=== PATIENT | female | born 1970 ===

== ENCOUNTER 2017-01-26 22:19 | Emergency (ER) | payer OTHER ==
[2017-01-26 22:38] VITALS: BP 111/73; PULSE 69; RESP 20; TEMP 97.9; O2SAT 100
--- NOTE | 2017-01-26 23:23 | C.PDOC ---
History Of Present Illness 46 year old female who presents to the ER with a complaint of intermittent back pain for the past week that worsens with movement and when bending over. Patient reports having similar symptoms in the past, however, states she feels like it is lasting longer this time. Patient has not taken anything for the pain and denies weakness, numbness, radiation of pain, recent trauma, fall, incontinence, dysuria, or hematuria. Time Seen by Provider: 01/26/17 22:49 Chief Complaint (Nursing): Back Pain History Per: Patient History/Exam Limitations: no limitations Onset/Duration Of Symptoms: Days Current Symptoms Are (Timing): Still Present Quality Of Discomfort: Unable To Describe Previous Symptoms: None Associated Symptoms: None Exacerbating Factor(s): Movement, Other (Bending over) Recent travel outside of the [place]: No Past Medical History Reviewed: Historical Data, Nursing Documentation, Vital Signs Vital Signs: Last Vital Signs Temp 97.9 F 01/26/17 22:35 Pulse 69 01/26/17 22:35 Resp 20 01/26/17 22:35 BP 111/73 01/26/17 22:35 Pulse Ox 100 01/26/17 23:26 - Medical History PMH: No Chronic Diseases Surgical History: No Surg Hx Family History: States: Unknown Family Hx - Social History Hx Tobacco Use: No Hx Alcohol Use: Yes Hx Substance Use: No - Immunization History Hx Tetanus Toxoid Vaccination: No Hx Influenza Vaccination: No Hx Pneumococcal Vaccination: No Review Of Systems Genitourinary: Negative for: Dysuria, Incontinence, Hematuria Musculoskeletal: Positive for: Back Pain Neurological: Negative for: Weakness, Numbness Physical Exam - Physical Exam Appears: Non-toxic, No Acute Distress Skin: Normal Color, Warm, Dry Head: Atraumatic, Normacephalic Eye(s): bilateral: Normal Inspection, EOMI Oral Mucosa: Moist Back: No CVA Tenderness, No Vertebral Tenderness, Paraspinal Tenderness (Lumbar) Extremity: Normal ROM (x4) Neurological/Psych: Oriented x3, Normal Speech, Normal Cognition, Normal Motor, Normal Sensation Gait: Steady ED Course And Treatment O2 Sat by Pulse Oximetry: 100 (Room air) Pulse Ox Interpretation: Normal Progress Note: Motrin administered. On reassessment, patient is resting comfortably, with improvement of back pain. Patient remains with no bony tenderness, extremity numbness or weakness, or abdominal pain. Patient is ambulatory in the emergency department with no signs of discomfort. Patient was advised to follow up with PMD in 1-2 days. Disposition Counseled Patient/Family Regarding: Diagnosis, Need For Followup, Rx Given - Disposition Disposition: HOME/ ROUTINE Disposition Time: 23:21 Condition: STABLE Additional Instructions: Take meds as directed Follow up with Dr Michaels Return to ER if worse Prescriptions: Cyclobenzaprine [Cyclobenzaprine HCl] 10 mg PO HS #10 tab Ibuprofen [Motrin] 600 mg PO Q6H #20 tab Instructions: Muscle Strain (ED) Forms: [employer] (Romanian) - Clinical Impression Clinical Impression: Low back strain - Scribe Statement The provider has reviewed the documentation as recorded by the Scribe Jerome Chopra All medical record entries made by the Annieibkurt were at my direction and personally dictated by me. I have reviewed the chart and agree that the record accurately reflects my personal performance of the history, physical exam, medical decision making, and the department course for this patient. I have also personally directed, reviewed, and agree with the discharge instructions and disposition.
== END 2017-01-26 23:38 | disposition home or self-care (01) ==
LOC: C.ER 22:19
DX: S39.012A Strain of muscle, fascia and tendon of lower back, initial encounter (principal); X58.XXXA Exposure to other specified factors, initial encounter

== ENCOUNTER 2018-01-01 22:59 | Emergency (ER) | payer OTHER ==
[2018-01-01 23:20] VITALS: BP 108/63; PULSE 70; RESP 16; TEMP 98.6; O2SAT 98
[2018-01-01] MEDS ORDERED: Bacitracin 500 Units/gm Oint Foilpak UD TOP ONE (23:33)
[2018-01-01] MEDS ORDERED: Bacitracin 500 Units/gm Oint Foilpak UD ONE (23:38)
--- NOTE | 2018-01-02 00:04 | C.PDOC ---
History Of Present Illness 47 year old female presents to the emergency department with complaints of right wrist and right knee pain status-post trip and fall inside a [employer] prior to arrival. Pain aggravated by movement. Patient denies head injury or change in sensation. Right hand dominant. Time Seen by Provider: 01/01/18 23:13 Chief Complaint (Nursing): Abnormal Skin Integrity History Per: Patient History/Exam Limitations: no limitations Onset/Duration Of Symptoms: Hrs Current Symptoms Are (Timing): Still Present Location Of Injury: Right: Knee, Wrist Quality Of Symptoms: Painful Past Medical History Reviewed: Historical Data, Nursing Documentation, Vital Signs Vital Signs: Last Vital Signs Temp 98.6 F 01/01/18 23:09 Pulse 70 01/01/18 23:09 Resp 16 01/01/18 23:09 BP 108/63 01/01/18 23:09 Pulse Ox 98 01/01/18 23:09 - Medical History PMH: No Chronic Diseases Surgical History: No Surg Hx Family History: States: No Known Family Hx - Social History Hx Tobacco Use: No Hx Alcohol Use: Yes Hx Substance Use: No - Immunization History Hx Tetanus Toxoid Vaccination: No Hx Influenza Vaccination: No Hx Pneumococcal Vaccination: No Review Of Systems Except As Marked, All Systems Reviewed And Found Negative. Musculoskeletal: Positive for: Hand Pain (right wrist), Leg Pain (right knee) Neurological: Negative for: Weakness, Numbness Physical Exam - Physical Exam Appears: Well, Non-toxic, No Acute Distress Skin: Warm, Dry Head: Atraumatic, Normacephalic Eye(s): bilateral: Normal Inspection, EOMI Nose: Normal Oral Mucosa: Moist Neck: Normal ROM, Supple Chest: Symmetrical Respiratory: No Accessory Muscle Use, Other (speaking full sentences) Extremity: No Normal ROM (decreased ROM to right knee, secondary to tenderness), Tenderness (diffuse tenderness to right knee and right wrist diffusely), Capillary Refill (<2 sec), Other ((+) superficial abrasion to the right knee) Extremity: Bilateral: Normal Color And Temperature, Normal ROM Pulses: Left Dorsalis Pedis: Normal, Right Dorsalis Pedis: Normal Neurological/Psych: Oriented x3, Normal Speech, Normal Sensation ED Course And Treatment O2 Sat by Pulse Oximetry: 98 (RA) Pulse Ox Interpretation: Normal - Other Rad XR Right Wrist X-Ray: Interpreted by Me, Viewed By Me Interpretation: Negative for fractures or dislocations. XR Right knee X-Ray: Interpreted by Me, Viewed By Me Interpretation: Negative for fractures or dislocations. Progress Note: Plan: Bacitracin. Motrin 600mg PO. Scott wrap applied to right wrist, pt declined knee immobilization. Instructed RICE and follow up with ortho in 1-2 days. Disposition - Disposition Referrals: Antonio Rothman MD [Staff Provider] - Disposition: HOME/ ROUTINE Disposition Time: 00:03 Condition: STABLE Additional Instructions: Rest, ice and elevate the area. Follow up with the bone doctor in 1-2 days. Instructions: Knee Pain (DC) Forms: [employer] (Zimbabwean) - Clinical Impression Clinical Impression: Knee abrasion, Wrist strain - PA / [employer]CH[employer]ISER / Resident Statement MD/DO has reviewed & agrees with the documentation as recorded. - Scribe Statement The provider has reviewed the documentation as recorded by the Scribe (Senthil Paniagua) All medical record entries made by the Scribe were at my direction and personally dictated by me. I have reviewed the chart and agree that the record accurately reflects my personal performance of the history, physical exam, medical decision making, and the department course for this patient. I have also personally directed, reviewed, and agree with the discharge instructions and disposition.
--- NOTE | 2018-01-02 13:14 | RAD ---
Date of service: 01/01/2018 PROCEDURE: Right Knee Radiographs. HISTORY: trauma COMPARISON: None. FINDINGS: BONES: Normal. No fracture. JOINTS: Normal. No osteoarthritis. JOINT EFFUSION: Suspect trace joint effusion OTHER FINDINGS: None. IMPRESSION: No evidence of acute displaced fracture nor dislocation.
--- NOTE | 2018-01-02 13:16 | RAD ---
Date of service: 01/01/2018 PROCEDURE: Right Wrist Radiographs. HISTORY: trauma COMPARISON: None. FINDINGS: BONES: Normal. No fracture. JOINTS: Normal. No dislocation. SOFT TISSUES: Normal. OTHER FINDINGS: None. IMPRESSION: No evidence of acute displaced fracture nor dislocation. If symptoms persist or occult fracture suspected clinically consider repeat radiographs in 5-10 days as most fractures should become radiographically evident in this timeframe
== END 2018-01-02 00:11 | disposition home or self-care (01) ==
LOC: C.ER 22:59
DX: S80.211A Abrasion, right knee, initial encounter (principal); S66.911A Strain of unspecified muscle, fascia and tendon at wrist and hand level, right hand, initial encounter; W01.0XXA Fall on same level from slipping, tripping and stumbling without subsequent striking against object, initial encounter; Y92.89 Other specified places as the place of occurrence of the external cause